=== PATIENT | female | born 1985 | race American Indian/Alaskan Native ===

== ENCOUNTER 2016-05-17 05:56 | Day surgery (SDC) | payer MEDICAID ==
[~2016-05-17 05:56] MED LIST: NACL 0.9% 1000 ML 1,000 ML IV SCH; PEPCID PO NR; VERSED IV NR
[2016-05-17] MEDS ORDERED: ANCEF/STERILE WATER 2 GM/20 ML IV NR (06:01)
[2016-05-17] MEDS ORDERED: NACL BACTERIOSTATIC INFILTRATI ONE (06:24)
[2016-05-17] MEDS ORDERED: XYLOCAINE MPF 2% ONE (06:34)
[2016-05-17] MEDS ORDERED: DIPRIVAN 10 MG/ML IV ONE (06:35)
[2016-05-17] MEDS ORDERED: DILAUDID ONE (06:36)
--- NOTE | 2016-05-17 06:51 | Anesthesia Day of Surgery ---
Anesthesia Day of Surgery - Day of Surgery Patient Examined: Yes Patient H&P Reviewed: Yes Patient is NPO: Yes
[2016-05-17 06:52] LABS: Hemoglobin 12.2 gm/dl (10.1-14.3)
--- NOTE | 2016-05-17 06:53 | Anesthesia Consultation ---
Anesthesia Consult and Med Hx - Airway Anesthetic Teeth Evaluation: Good ROM Head & Neck: Adequate Mental/Hyoid Distance: Adequate Mallampati Class: Class II Intubation Access Assessment: Probably Good - Pulmonary Exam CTA: Yes (little dry cough at present) - Cardiac Exam Cardiac Exam: RRR - Pre-Operative Health Status ASA Pre-Surgery Classification: ASA2 Proposed Anesthetic Plan: General - Pulmonary Hx Smoking: No Hx Asthma: Yes ( CHILD ONLY) Hx Sleep Apnea: No (FREEMAN PRE SCREEN NEGATIVE) - Cardiovascular System Hx Hypertension: No - Hematic Hx Anemia: Yes (WITH PREG. ONLY) - Other Systems Hx Cancer: No - Additional Comments Anesthesia Medical History Comments: No prior anesthesia problems. NPO after MN. Childhood asthma. Dry cough at present time
[2016-05-17] MEDS ORDERED: VERSED IV NR (07:00)
[2016-05-17] MEDS ORDERED: PEPCID PO NR (07:00)
[2016-05-17] MEDS ORDERED: DECADRON ONE (08:04)
[2016-05-17] MEDS ORDERED: ZOFRAN ONE (08:04)
[2016-05-17] MEDS ORDERED: NACL 0.9% IR ONE (08:55)
[2016-05-17] MEDS ORDERED: ZOFRAN IV PRN (09:09)
[2016-05-17] MEDS: DILAUDID IV PRN ×3 (09:15→09:30)
--- NOTE | 2016-05-17 09:49 | Post Anesthesia Evaluation ---
- Post Anesthesia Evaluation Patient Participated: Yes Airway Patent: Yes Stable Respiratory Function: Yes Nausea/Vomiting: No Temp > 96.8F: Yes Pain Manageable: Yes Adequeate Hydration: Yes Anesthesia Complications: No
[2016-05-17 10:04] VITALS: BP 112/76
--- NOTE | 2016-05-17 11:00 | Operative Report ---
SERVICE: Plastic surgery. PREOPERATIVE DIAGNOSIS: Hidradenitis suppurativa of left breast. POSTOPERATIVE DIAGNOSIS: Hidradenitis suppurativa of left breast. PROCEDURE: 1. Excision of hidradenitis suppurativa of left breast. 2. Adjacent tissue transfer, closure of left breast, 75 square cm. SURGEON: Marco Lucas MD DESCRIPTION OF PROCEDURE: The patient was brought to the operating room and placed on the table in supine position. Following administration of general anesthesia, the left breast was prepped with Betadine solution, draped in usual sterile manner. A #10 blade scalpel was used to circumferentially excise the affected area of skin along the medial half of the left breast, sent to pathology as specimen. Hemostasis controlled using the electrocautery. Skin was rotated and advanced across the defect with a back cut along the prior vertical scar, beneath the nipple areolar complex. Closure was performed in layers using interrupted and running subcuticular 2-0 Monocryl sutures. Mastisol, Steri-Strips, and sterile dressings applied. The patient tolerated the procedure well and returned to recovery room in stable condition. JOB# [id number] FTW/JUDITH
== END 2016-05-17 10:30 | disposition home or self-care (01) ==
LOC: OR 05:56
PROVIDERS: ATTEND Plastic Surgery
DX: L73.2 Hidradenitis suppurativa (principal); J45.909 Unspecified asthma, uncomplicated; D64.9 Anemia, unspecified; Z82.5 Family history of asthma and other chronic lower respiratory diseases; Z83.3 Family history of diabetes mellitus; Z82.49 Family history of ischemic heart disease and other diseases of the circulatory system; Z80.9 Family history of malignant neoplasm, unspecified; Z98.890 Other specified postprocedural states
CPT/HCPCS: 14301; 14302; 36415; 81025; 85014; 85018; 88305; J0690; J1100; J1170; J2405; J2704; J7030; J2250

== ENCOUNTER 2017-07-11 09:37 | Emergency (ER) | payer MEDICAID ==
[2017-07-11 09:50] VITALS: BP 112/76
--- NOTE | 2017-07-11 10:57 | XRay Report ---
RIGHT SHOULDER, 3 VIEWS: HISTORY: Right shoulder injury. Normal bone mineralization. Normal articulation of the a.c. joint and glenohumeral joint. No fracture, ligamentous injury or bone lesion. There is a focal soft tissue calcification overlying the expected course of the infraspinatus tendon consistent with chronic calcific tendinitis. IMPRESSION: No evidence for acute injury. Calcific tendinitis of the infraspinatus tendon.
[2017-07-11] MEDS ORDERED: TORADOL IM ONE (12:01)
[2017-07-11] MEDS ORDERED: NORCO 5/325 PO ONE (12:02)
[2017-07-11] MEDS ORDERED: ZOFRAN ODT PO ONE (12:02)
--- NOTE | 2017-07-11 12:09 | Emergency Department Report ---
Upper Extremity - HPI Chief Complaint: Shoulder Injury Stated Complaint: RIGHT SHOULDER INJURY Time Seen by Provider: 07/11/17 11:24 Upper Extremity: Right Shoulder Occurred When: 1 Day Severity: moderate Symptoms: Yes Pain with Movement, Yes Limited Range of Movement, No Deformity, No Numbness, No Weakness, No Swelling, No Bruising/Ecchymosis, No Laceration or Abrasion Other History: 31-year-old female past medical history history of right shoulder dislocation presents with complaint of one day of pain in right shoulder. Patient denies any direct falls or trauma. States she has a baby which weighs about 20 pounds which she constantly holds. Patient is complaining of persistent right-sided shoulder pain the upper deltoid region right shoulder. 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 Patient states that nearly 8 years ago she had one shoulder dislocation. Patient denies any paresthesias of right upper extremity. Patient is awake alert and oriented 3. Is able to somewhat rotate her shoulder but it is painful. Patient denies any falls or trauma. Denies fevers or chills. ED Review of Systems ROS: Stated complaint: RIGHT SHOULDER INJURY Other details as noted in HPI Constitutional: denies: chills, fever Eyes: denies: eye pain, eye discharge, vision change ENT: denies: ear pain, throat pain Respiratory: denies: cough, shortness of breath, wheezing Cardiovascular: denies: chest pain, palpitations Endocrine: no symptoms reported Gastrointestinal: as per HPI. denies: abdominal pain, nausea, diarrhea Genitourinary: denies: urgency, dysuria, discharge Musculoskeletal: denies: back pain, joint swelling, arthralgia Skin: denies: rash, lesions Neurological: denies: headache, weakness, paresthesias Psychiatric: denies: anxiety, depression Hematological/Lymphatic: denies: easy bleeding, easy bruising ED Past Medical Hx - Past Medical History Previous Medical History?: Yes Hx Hypertension: No Hx Asthma: Yes ( CHILD ONLY) Additional medical history: right shoulder dislocation - Surgical History Past Surgical History?: Yes Hx Breast Surgery: Yes (BREAST REDUCTION, I&D BREAST BOILS 05/2016) Additional Surgical History: BREAST REDUCTION, CS - Social History Smoking Status: Never Smoker Substance Use Type: Alcohol, Prescribed - Medications Home Medications: Home Medications Medication Instructions Recorded Confirmed Last Taken Type Acetaminophen/Codeine [Tylenol 1 tab PO Q6H PRN #12 tab 07/11/17 Unknown Rx /Codeine # 3 tab] Ibuprofen [Motrin] 600 mg PO Q8H PRN #25 tablet 07/11/17 Unknown Rx Upper Extremity Exam - Exam General: Vital signs noted. No distress. Alert and acting appropriately. Head and Torso: No HEENT Abnormality, No Neck Tenderness, No Chest/Lungs Abnormality, No Abdominal Tenderness, No Back Tenderness Shoulder Exam: Yes Shoulder Tenderness (right uppe deltoid pain), Yes Clavicle Tenderness, Yes Normal Range of Motion in Shoulder (shoulder abdcution, adduction, internal and external rotation intact but painful), No Shoulder Deformity, No AC Joint Tenderness Arm Exam: No Arm/Humerus Tenderness, No Arm Deformity Elbow: Yes Normal Range of Motion in Elbow, No Elbow Tenderness, No Elbow Deformity Forearm: No Forearm Tenderness, No Forearm Deformity, No Pain with Pronation, No Pain with Supination Wrist: Yes Normal ROM in Wrist, No Wrist Tenderness, No Wrist Deformity, No Snuffbox Tenderness, No Pain with Axial Thumb Compression Hand: Yes Normal ROM in Digit(s), No Hand Tenderness, No Hand Deformity, No Digit Tenderness, No Digit(s) Deformity, No Tendon Dysfunction CMS Exam: Yes Normal Distal Pulses (distal radial and brachial pulses intact), Yes Normal Distal Sensation (distal sensation intact), No Broken Skin ED Course Vital Signs 07/11/17 09:47 Temperature 97.6 F Pulse Rate 74 Respiratory 20 Rate Blood Pressure 112/76 O2 Sat by Pulse 99 Oximetry ED Medical Decision Making - Medical Decision Making A/P: Right shoulder pain, calcific tendinitis 1-x-ray consistent with calcific tendinitis of right shoulder 2-no fracture or dislocation 3-distal range of motion intact 4-follow-up with orthopedic Critical care attestation.: If time is entered above; I have spent that time in minutes in the direct care of this critically ill patient, excluding procedure time. ED Disposition Clinical Impression: Calcific tendinitis of right shoulder Disposition: TO HOME OR SELFCARE Is pt being admited?: No Does the pt Need Aspirin: No Condition: Stable Instructions: Calcific Tendinitis (ED), Adhesive Capsulitis (ED), Arthralgia ( ED), RICE Therapy (ED) Prescriptions: Acetaminophen/Codeine [Tylenol /Codeine # 3 tab] 1 tab PO Q6H PRN #12 tab PRN Reason: Pain Ibuprofen [Motrin] 600 mg PO Q8H PRN #25 tablet PRN Reason: Pain Referrals: PRIMARY CARE, [Primary Care Provider] - 3-5 Days [facility] [Outside] - 3-5 Days [facility] [Provider Group] - 3-5 Days Forms: Work/School Release Form(ED) Time of Disposition: 12:09
== END 2017-07-11 12:32 | disposition home or self-care (01) ==
LOC: ED 09:37
DX: M75.31 Calcific tendinitis of right shoulder (principal); J45.909 Unspecified asthma, uncomplicated
CPT/HCPCS: 73030; 96372; 99283; J1885; Q0162

== ENCOUNTER 2020-06-21 00:55 | Emergency (ER) | payer MEDICAID ==
[2020-06-21] MEDS ORDERED: KETOROLAC 30 MG/1 ML INJ IV ONE (01:42)
[2020-06-21] MEDS ORDERED: SODIUM CHLORIDE 0.9% 1000 ML 1,000 ML IV ONE (01:42)
[2020-06-21 01:44] LABS: Basophils # (Auto) 0.1 K/mm3 (0.0-0.1); Eosinophils # (Auto) 0.2 K/mm3 (0.0-0.4); Eosinophils % (Auto) 3.8 % (0.0-4.3); Hematocrit 39.1 % (30.3-42.9); Hemoglobin 12.8 gm/dl (10.1-14.3); Lymphocytes # (Auto) 1.8 K/mm3 (1.2-5.4); Lymphocytes % (Auto) 31.1 % (13.4-35.0); Mean Corpuscular HGB Conc 33 % (30-34); Mean Corpuscular Volume 87 fl (79-97); Monocytes # (Auto) 0.4 K/mm3 (0.0-0.8); Monocytes % (Auto) 7.2 % (0.0-7.3); Platelet Count 209 K/mm3 (140-440); Red Blood Count 4.47 M/mm3 (3.65-5.03); Red Cell Distribution Width 14.6 % (13.2-15.2)
--- NOTE | 2020-06-21 01:54 | Emergency Department Report ---
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 Patient started PrEP the following day. Patient has been doing relatively well until 2 to 3 days ago when she started developing some nausea and mild diarrhea. Started having some crampy central abdominal pain yesterday. Patient also states she had a fever as well. She has been taking Tylenol [id number] as well as Motrin for the fever and pain. Patient denies having blood in her vomit or stool. Pain is estimated at 5 out of 10 in severity. - Related Data Previous Rx's Medication Instructions Recorded Last Taken Type Acetaminophen/Codeine [Tylenol 1 tab PO Q6H PRN #12 tab 07/11/17 Unknown Rx /Codeine # 3 tab] Ibuprofen [Motrin] 600 mg PO Q8H PRN #25 tablet 07/11/17 Unknown Rx Dicyclomine [Bentyl] 20 mg PO QID #10 tablet 06/21/20 Unknown Rx Diphenoxylate/Atropine [Lomotil] 1 tab PO BID PRN #6 tablet 06/21/20 Unknown Rx Famotidine [Pepcid] 40 mg PO QHS #10 tablet 06/21/20 Unknown Rx Ketorolac [Toradol] 10 mg PO Q6H PRN #12 tablet 06/21/20 Unknown Rx Ondansetron [Zofran Odt] 4 mg PO Q8HR #10 tab.rapdis 06/21/20 Unknown Rx Allergies Allergy/AdvReac Type Severity Reaction Status Date / Time No Known Allergies Allergy Verified 01/03/15 23:21 ED Review of Systems ROS: Stated complaint: ALLERGIC REACTION; ABDOMINAL PAIN Other details as noted in HPI Comment: All other systems reviewed and negative ED Past Medical Hx - Past Medical History Previous Medical History?: Yes Hx Hypertension: No Hx Asthma: Yes ( CHILD ONLY) Additional medical history: right shoulder dislocation - Surgical History Past Surgical History?: Yes Hx Breast Surgery: Yes (BREAST REDUCTION, I&D BREAST BOILS 05/2016) Additional Surgical History: BREAST REDUCTION, - Social History Smoking Status: Never Smoker Substance Use Type: None - Medications Home Medications: Home Medications Medication Instructions Recorded Confirmed Last Taken Type Acetaminophen/Codeine [Tylenol 1 tab PO Q6H PRN #12 tab 07/11/17 Unknown Rx /Codeine # 3 tab] Ibuprofen [Motrin] 600 mg PO Q8H PRN #25 tablet 07/11/17 Unknown Rx Dicyclomine [Bentyl] 20 mg PO QID #10 tablet 06/21/20 Unknown Rx Diphenoxylate/Atropine [Lomotil] 1 tab PO BID PRN #6 tablet 06/21/20 Unknown Rx Famotidine [Pepcid] 40 mg PO QHS #10 tablet 06/21/20 Unknown Rx Ketorolac [Toradol] 10 mg PO Q6H PRN #12 tablet 06/21/20 Unknown Rx Ondansetron [Zofran Odt] 4 mg PO Q8HR #10 tab.rapdis 06/21/20 Unknown Rx ED Physical Exam - General Limitations: No Limitations General appearance: alert, in no apparent distress - Head Head exam: Present: atraumatic, normocephalic - Eye Eye exam: Present: normal appearance, PERRL, EOMI - ENT ENT exam: Present: mucous membranes moist - Neck Neck exam: Present: normal inspection - Respiratory Respiratory exam: Present: normal lung sounds bilaterally. Absent: respiratory distress, wheezes, rales, rhonchi - Cardiovascular Cardiovascular Exam: Present: regular rate, normal rhythm, normal heart sounds. Absent: systolic murmur, diastolic murmur, rubs, gallop - GI/Abdominal GI/Abdominal exam: Present: soft, normal bowel sounds. Absent: distended, tenderness, guarding - Extremities Exam Extremities exam: Present: normal inspection - Back Exam Back exam: Present: normal inspection - Neurological Exam Neurological exam: Present: alert, oriented X3 - Psychiatric Psychiatric exam: Present: normal affect, normal mood - Skin Skin exam: Present: warm, dry, intact, normal color. Absent: rash ED Course Vital Signs 06/21/20 06/21/20 06/21/20 01:02 02:14 03:04 Temperature 98.1 F Pulse Rate 81 76 Respiratory 18 16 16 Rate Blood Pressure 103/71 Blood Pressure 110/76 [Left] O2 Sat by Pulse 99 98 Oximetry ED Medical Decision Making - Lab Data Result diagrams: 06/21/20 01:25 06/21/20 01:25 Lab Results 06/21/20 06/21/20 06/21/20 Range/Units 01:25 01:25 01:25 WBC 5.7 (4.5-11.0) K/mm3 RBC 4.47 (3.65-5.03) M/mm3 Hgb 12.8 (10.1-14.3) gm/dl Hct 39.1 (30.3-42.9) % MCV 87 (79-97) fl MCH 29 (28-32) pg MCHC 33 (30-34) % RDW 14.6 (13.2-15.2) % Plt Count 209 (140-440) K/mm3 Lymph % (Auto) 31.1 (13.4-35.0) % [place] % (Auto) 7.2 (0.0-7.3) % Eos % (Auto) 3.8 (0.0-4.3) % Baso % (Auto) 1.0 (0.0-1.8) % Lymph # (Auto) 1.8 (1.2-5.4) K/mm3 [place] # (Auto) 0.4 (0.0-0.8) K/mm3 Eos # (Auto) 0.2 (0.0-0.4) K/mm3 Baso # (Auto) 0.1 (0.0-0.1) K/mm3 Seg Neutrophils % 56.9 (40.0-70.0) % Seg Neutrophils # 3.2 (1.8-7.7) K/mm3 Sodium 134 L (137-145) mmol/L Potassium 4.1 (3.6-5.0) mmol/L Chloride 98.2 (98-107) mmol/L Carbon Dioxide 27 (22-30) mmol/L Anion Gap 13 mmol/L BUN 15 (7-17) mg/dL Creatinine 0.7 (0.6-1.2) mg/dL Estimated GFR > 60 ml/min BUN/Creatinine Ratio 21 % Glucose 90 (65-100) mg/dL Calcium 9.2 (8.4-10.2) mg/dL Total Bilirubin 0.30 (0.1-1.2) mg/dL AST 15 (5-40) units/L ALT 8 (7-56) units/L Alkaline Phosphatase 59 (35-129) units/L Total Protein 8.0 (6.3-8.2) g/dL Albumin 4.4 (3.9-5) g/dL Albumin/Globulin Ratio 1.2 % Lipase 39 (13-60) units/L HCG, Qual Negative (Negative) Urine Color (Yellow) Urine Turbidity (Clear) Urine pH (5.0-7.0) Ur Specific [place] (1.003-1.030) Urine Protein (Negative) mg/dL Urine Glucose (UA) (Negative) mg/dL Urine Ketones (Negative) mg/dL Urine Blood (Negative) Urine Nitrite (Negative) Urine Bilirubin (Negative) Urine Urobilinogen (<2.0) mg/dL Ur Leukocyte Esterase (Negative) Urine WBC (Auto) (0.0-6.0) /HPF Urine RBC (Auto) (0.0-6.0) /HPF U Epithel Cells (Auto) (0-13.0) /HPF Urine Bacteria (Auto) (Negative) /HPF Urine Mucus /HPF 06/21/20 Range/Units Unknown WBC (4.5-11.0) K/mm3 RBC (3.65-5.03) M/mm3 Hgb (10.1-14.3) gm/dl Hct (30.3-42.9) % MCV (79-97) fl MCH (28-32) pg MCHC (30-34) % RDW (13.2-15.2) % Plt Count (140-440) K/mm3 Lymph % (Auto) (13.4-35.0) % [place] % (Auto) (0.0-7.3) % Eos % (Auto) (0.0-4.3) % Baso % (Auto) (0.0-1.8) % Lymph # (Auto) (1.2-5.4) K/mm3 [place] # (Auto) (0.0-0.8) K/mm3 Eos # (Auto) (0.0-0.4) K/mm3 Baso # (Auto) (0.0-0.1) K/mm3 Seg Neutrophils % (40.0-70.0) % Seg Neutrophils # (1.8-7.7) K/mm3 Sodium (137-145) mmol/L Potassium (3.6-5.0) mmol/L Chloride (98-107) mmol/L Carbon Dioxide (22-30) mmol/L Anion Gap mmol/L BUN (7-17) mg/dL Creatinine (0.6-1.2) mg/dL Estimated GFR ml/min BUN/Creatinine Ratio % Glucose (65-100) mg/dL Calcium (8.4-10.2) mg/dL Total Bilirubin (0.1-1.2) mg/dL AST (5-40) units/L ALT (7-56) units/L Alkaline Phosphatase (35-129) units/L Total Protein (6.3-8.2) g/dL Albumin (3.9-5) g/dL Albumin/Globulin Ratio % Lipase (13-60) units/L HCG, Qual (Negative) Urine Color Yellow (Yellow) Urine Turbidity Slightly-cloudy (Clear) Urine pH 5.0 (5.0-7.0) Ur Specific [place] 1.024 (1.003-1.030) Urine Protein <15 mg/dl (Negative) mg/dL Urine Glucose (UA) Neg (Negative) mg/dL Urine Ketones Neg (Negative) mg/dL Urine Blood Neg (Negative) Urine Nitrite Neg (Negative) Urine Bilirubin Neg (Negative) Urine Urobilinogen 4.0 (<2.0) mg/dL Ur Leukocyte Esterase Neg (Negative) Urine WBC (Auto) 4.0 (0.0-6.0) /HPF Urine RBC (Auto) 11.0 (0.0-6.0) /HPF U Epithel Cells (Auto) 4.0 (0-13.0) /HPF Urine Bacteria (Auto) 1+ (Negative) /HPF Urine Mucus Few /HPF - Radiology Data CT ABDOMEN AND PELVIS WITH CONTRAST INDICATION / CLINICAL INFORMATION: NVD fever. TECHNIQUE: Axial CT images were obtained through the abdomen and pelvis after IV contrast. All CT scans at this location are performed using CT dose reduction for ALARA by means of automated expo sure control. COMPARISON: None available. FINDINGS: LOWER CHEST: No significant abnormality LIVER: Mild hepatomegaly versus José Antonio's configuration. No focal hepatic lesion. GALLBLADDER/BILIARY TREE: No significant abnormality PANCREAS: No significant abnormality SPLEEN: No significant abnormality ADRENALS: No significant abnormality KIDNEYS / URETER: No significant abnormality URINARY BLADDER: Bladder is partially decompressed, though grossly unremarkable. REPRODUCTIVE ORGANS: Uterus/adnexa are appropriate for age. STOMACH / SMALL BOWEL: Stomach and small bowel are normal in caliber. No evidence of bowel inflammation. COLON: The colon is unremarkable. The appendix is normal in caliber. LYMPH NODES: No significant adenopathy. VASCULATURE: No significant abnormality. OTHER: No free air, free fluid, or focal fluid collection is identified. SKELETAL SYSTEM: No acute osseous findings. IMPRESSION: No acute abnormality of the abdomen or pelvis. Signer Name: Henri Landeros MD Signed: 06/21/2020 3:01 AM Workstation Name: [id number] - Medical Decision Making Patient is feeling some improvement after meds given. She was hydrated. CT shows no bowel inflammation. [place]vada can cause fevers and the PrEP cocktail oftentimes does cause nausea vomiting diarrhea. Patient be given medications to combat the symptoms but should be discharged home. Critical care attestation.: If time is entered above; I have spent that time in minutes in the direct care of this critically ill patient, excluding procedure time. ED Disposition Clinical Impression: Gastroenteritis, Medication side effect Disposition: DC-01 TO HOME OR SELFCARE Is pt being admited?: No Does the pt Need Aspirin: No Condition: Stable Instructions: Nausea and Vomiting, Adult, Diarrhea, Adult Referrals: PRIMARY CARE, [Primary Care Provider] - 3-5 Days Time of Disposition: 03:46
[2020-06-21 02:00] LABS: Alanine Aminotransferase 8 units/L (7-56); Albumin 4.4 g/dL (3.9-5); Blood Urea Nitrogen 15 mg/dL (7-17); Calcium 9.2 mg/dL (8.4-10.2); Hemolysis Index 1
[2020-06-21 02:02] LABS: BUN/Creatinine Ratio 21
--- NOTE | 2020-06-21 03:06 | Cat Scan Report ---
CT ABDOMEN AND PELVIS WITH CONTRAST INDICATION / CLINICAL INFORMATION: NVD fever. TECHNIQUE: Axial CT images were obtained through the abdomen and pelvis after IV contrast. All CT sc ans at this location are performed using CT dose reduction for ALARA by means of automated exposure c ontrol. COMPARISON: None available. FINDINGS: LOWER CHEST: No significant abnormality LIVER: Mild hepatomegaly versus José Antonio's configuration. No focal hepatic lesion. GALLBLADDER/BILIARY TREE: No significant abnormality PANCREAS: No significant abnormality SPLEEN: No significant abnormality ADRENALS: No significant abnormality KIDNEYS / URETER: No significant abnormality URINARY BLADDER: Bladder is partially decompressed, though grossly unremarkable. REPRODUCTIVE ORGANS: Uterus/adnexa are appropriate for age. STOMACH / SMALL BOWEL: Stomach and small bowel are normal in caliber. No evidence of bowel inflammati on. COLON: The colon is unremarkable. The appendix is normal in caliber. LYMPH NODES: No significant adenopathy. VASCULATURE: No significant abnormality. OTHER: No free air, free fluid, or focal fluid collection is identified. SKELETAL SYSTEM: No acute osseous findings. IMPRESSION: No acute abnormality of the abdomen or pelvis. Signer Name: Henri Landeros MD Signed: 06/21/2020 3:01 AM Workstation Name: [id number]
[2020-06-21 03:10] LABS: Bacteria,Urine 1+ /HPF (Negative); Bilirubin,Urine NEG (Negative); Blood,Urine NEG (Negative); Color,Urine Yellow (Yellow); Mucus,Urine FEW /HPF; Protein,Urine <15 mg/dL mg/dL (Negative)
[2020-06-21 04:40] VITALS: BP 104/66
== END 2020-06-21 04:40 | disposition home or self-care (01) ==
LOC: ED 00:55
DX: K52.9 Noninfective gastroenteritis and colitis, unspecified (principal); T50.905A Adverse effect of unspecified drugs, medicaments and biological substances, initial encounter; J45.909 Unspecified asthma, uncomplicated; Z98.890 Other specified postprocedural states; Z79.1 Long term (current) use of non-steroidal anti-inflammatories (NSAID); Z79.899 Other long term (current) drug therapy; Y92.89 Other specified places as the place of occurrence of the external cause
CPT/HCPCS: 36415; 74177; 80053; 81001; 83690; 84703; 85025; 96361; 96374; 99284; J1885; J7030; Q9967

== ENCOUNTER 2020-12-21 04:22 | Emergency (ER) | payer BC, MEDICAID ==
[2020-12-21 05:29] VITALS: BP 109/73
[2020-12-21 06:23] LABS: Bacteria,Urine 1+ /HPF (Negative); Bilirubin,Urine NEG (Negative); Blood,Urine NEG (Negative); Color,Urine Yellow (Yellow); Mucus,Urine 1+ /HPF; Protein,Urine <15 mg/dL mg/dL (Negative); Urobilinogen,Urine < 2.0 mg/dL (<2.0)
[2020-12-21 07:45] LABS: Basophils % (Auto) 0.4 % (0.0-1.8); Eosinophils # (Auto) 0.4 K/mm3 (0.0-0.4); Eosinophils % (Auto) 5.4 % (0.0-4.3); Hematocrit 35.2 % (30.3-42.9); Hemoglobin 11.7 gm/dl (10.1-14.3); Lymphocytes # (Auto) 2.3 K/mm3 (1.2-5.4); Mean Corpuscular HGB Conc 33 % (30-34); Mean Corpuscular Volume 87 fl (79-97); Monocytes # (Auto) 0.7 K/mm3 (0.0-0.8); Monocytes % (Auto) 9.3 % (0.0-7.3); Platelet Count 211 K/mm3 (140-440); Red Blood Count 4.03 M/mm3 (3.65-5.03); Red Cell Distribution Width 15.7 % (13.2-15.2)
[2020-12-21 08:38] LABS: Alanine Aminotransferase 9 units/L (7-56); Blood Urea Nitrogen 12 mg/dL (7-17); Calcium 9.4 mg/dL (8.4-10.2); Hemolysis Index 2
[2020-12-21 08:54] LABS: BUN/Creatinine Ratio 24
--- NOTE | 2020-12-21 09:13 | Ultrasound Report ---
EARLY OBSTETRICAL ULTRASOUND INDICATION: pelvic pain COMPARISON: None pertinent available TECHNIQUE: Transabdominal FINDINGS: Early intrauterine is seen with pole and yolk sac noted. Cardiac activity w as documented with heart rate of 166 bpm period estimated gestational age by crown-rump length is 8 weeks 1 day which reasonably corresponds to clinical dating. There may be a minimal implant blee d. IMPRESSION: Viable appearing early intrauterine Signer Name: Federico Siddiqi MD Signed: 12/21/2020 9:09 AM Workstation Name: [id number]
--- NOTE | 2020-12-21 09:24 | Emergency Department Report ---
ED HPI - General Chief complaint: Abdominal Pain Stated complaint: 8WKS PREG/IVF/STOMACH PAIN Time Seen by Provider: 12/21/20 07:57 Source: patient Mode of arrival: Ambulatory Limitations: No Limitations - History of Present Illness Initial comments: This is a 35-year-old female A1 nontoxic, well nourished in appearance, no acute signs of distress presents to the ED with c/o of pelvic cramping x several days. Patient denies any vaginal bleeding. Stated cramping is inermittent and her OB stated to come to the ED for ultrasound due to high risk . Patient denies any upper abdominal pain. Patient denies any vaginal discharge o r foul odor. Patient denies any nausea, vomiting, chest pain, shortness of breathe, fever, chills, headache, stiff neck, numbness, tingling. Patient denies any urinary symptoms. Patient denies any allergies. -: days(s) Location: pelvis Radiation: none Severity: mild Severity scale (0 -10): 3 Quality: cramping, sharp Consistency: intermittent Improves with: none Worsens with: none Associated symptoms: denies: nausea/vomiting, vaginal bleeding, vaginal discharge, abdominal pain, dysuria, headache, vision changes, malaise, dysparuenia, rash, seizure, shortness of breath, syncope, weakness Vaginal bleeding: none :: Yes Number of weeks : 8 Pre-sarah care: followed by OB - Related Data Previous Rx's Medication Instructions Recorded Last Taken Type Acetaminophen/Codeine [Tylenol 1 tab PO Q6H PRN #12 tab 07/11/17 Unknown Rx /Codeine # 3 tab] Ibuprofen [Motrin] 600 mg PO Q8H PRN #25 tablet 07/11/17 Unknown Rx Dicyclomine [Bentyl] 20 mg PO QID #10 tablet 06/21/20 Unknown Rx Diphenoxylate/Atropine [Lomotil] 1 tab PO BID PRN #6 tablet 06/21/20 Unknown Rx Famotidine [Pepcid] 40 mg PO QHS #10 tablet 06/21/20 Unknown Rx Ketorolac [Toradol] 10 mg PO Q6H PRN #12 tablet 06/21/20 Unknown Rx Ondansetron [Zofran Odt] 4 mg PO Q8HR #10 tab.rapdis 06/21/20 Unknown Rx Allergies Allergy/AdvReac Type Severity Reaction Status Date / Time No Known Allergies Allergy Verified 01/03/15 23:21 ED Review of Systems ROS: Stated complaint: 8WKS PREG/IVF/STOMACH PAIN Other details as noted in HPI Comment: All other systems reviewed and negative Constitutional: denies: chills, fever Eyes: denies: eye pain, eye discharge, vision change ENT: denies: ear pain, throat pain Respiratory: denies: cough, shortness of breath, wheezing Cardiovascular: denies: chest pain, palpitations Endocrine: no symptoms reported Gastrointestinal: denies: abdominal pain, nausea, diarrhea Genitourinary: denies: urgency, dysuria, discharge Musculoskeletal: denies: back pain, joint swelling, arthralgia Skin: denies: rash, lesions Neurological: denies: headache, weakness, paresthesias Psychiatric: denies: anxiety, depression Hematological/Lymphatic: denies: easy bleeding, easy bruising ED Past Medical Hx - Past Medical History Previous Medical History?: Yes Hx Hypertension: No Hx Asthma: Yes ( CHILD ONLY) Additional medical history: right shoulder dislocation - Surgical History Past Surgical History?: Yes Hx Breast Surgery: Yes (BREAST REDUCTION, I&D BREAST BOILS 05/2016) Additional Surgical History: BREAST REDUCTION, - Social History Smoking Status: Never Smoker Substance Use Type: None - Medications Home Medications: Home Medications Medication Instructions Recorded Confirmed Last Taken Type Acetaminophen/Codeine [Tylenol 1 tab PO Q6H PRN #12 tab 07/11/17 Unknown Rx /Codeine # 3 tab] Ibuprofen [Motrin] 600 mg PO Q8H PRN #25 tablet 07/11/17 Unknown Rx Dicyclomine [Bentyl] 20 mg PO QID #10 tablet 06/21/20 Unknown Rx Diphenoxylate/Atropine [Lomotil] 1 tab PO BID PRN #6 tablet 06/21/20 Unknown Rx Famotidine [Pepcid] 40 mg PO QHS #10 tablet 06/21/20 Unknown Rx Ketorolac [Toradol] 10 mg PO Q6H PRN #12 tablet 06/21/20 Unknown Rx Ondansetron [Zofran Odt] 4 mg PO Q8HR #10 tab.rapdis 06/21/20 Unknown Rx ED Physical Exam - General Limitations: No Limitations General appearance: alert, in no apparent distress - Head Head exam: Present: atraumatic, normocephalic - Eye Eye exam: Present: normal appearance - Neck Neck exam: Present: normal inspection, full ROM. Absent: lymphadenopathy - Respiratory Respiratory exam: Present: normal lung sounds bilaterally. Absent: respiratory distress, wheezes, rales, rhonchi, stridor, chest wall tenderness, accessory muscle use, decreased breath sounds, prolonged expiratory - Cardiovascular Cardiovascular Exam: Present: regular rate, normal rhythm, normal heart sounds. Absent: bradycardia, tachycardia, irregular rhythm, systolic murmur, diastolic murmur, rubs, gallop - GI/Abdominal GI/Abdominal exam: Present: soft, normal bowel sounds. Absent: distended, tenderness, guarding, rebound, rigid, diminished bowel sounds - Extremities Exam Extremities exam: Present: full ROM - Back Exam Back exam: Present: normal inspection, full ROM. Absent: tenderness, CVA tenderness (R), CVA tenderness (L), muscle spasm, paraspinal tenderness, vertebral tenderness, rash noted - Neurological Exam Neurological exam: Present: alert, oriented X3, normal gait - Psychiatric Psychiatric exam: Present: normal affect, normal mood - Skin Skin exam: Present: warm, dry, intact, normal color. Absent: rash ED Course Vital Signs 12/21/20 05:27 Temperature 98.2 F Pulse Rate 75 Respiratory 18 Rate Blood Pressure 109/73 [Left] O2 Sat by Pulse 100 Oximetry - Reevaluation(s) Reevaluation #1: 12/21/20 09:24 Patient is speaking in full sentences with no signs of distress noted. ED Medical Decision Making - Lab Data Result diagrams: 12/21/20 05:40 12/21/20 05:40 Lab Results 12/21/20 12/21/20 12/21/20 Range/Units 05:40 05:40 05:40 WBC 7.3 (4.5-11.0) K/mm3 RBC 4.03 (3.65-5.03) M/mm3 Hgb 11.7 (10.1-14.3) gm/dl Hct 35.2 (30.3-42.9) % MCV 87 (79-97) fl MCH 29 (28-32) pg MCHC 33 (30-34) % RDW 15.7 H (13.2-15.2) % Plt Count 211 (140-440) K/mm3 Lymph % (Auto) 31.0 (13.4-35.0) % [place] % (Auto) 9.3 H (0.0-7.3) % Eos % (Auto) 5.4 H (0.0-4.3) % Baso % (Auto) 0.4 (0.0-1.8) % Lymph # (Auto) 2.3 (1.2-5.4) K/mm3 [place] # (Auto) 0.7 (0.0-0.8) K/mm3 Eos # (Auto) 0.4 (0.0-0.4) K/mm3 Baso # (Auto) 0.0 (0.0-0.1) K/mm3 Seg Neutrophils % 53.9 (40.0-70.0) % Seg Neutrophils # 4.0 (1.8-7.7) K/mm3 Sodium 135 L (137-145) mmol/L Potassium 3.9 (3.6-5.0) mmol/L Chloride 98.8 (98-107) mmol/L Carbon Dioxide 26 (22-30) mmol/L Anion Gap 14 mmol/L BUN 12 (7-17) mg/dL Creatinine 0.5 L (0.6-1.2) mg/dL Estimated GFR > 60 ml/min BUN/Creatinine Ratio 24 % Glucose 79 (65-100) mg/dL Calcium 9.4 (8.4-10.2) mg/dL Total Bilirubin 0.20 (0.1-1.2) mg/dL AST 14 (5-40) units/L ALT 9 (7-56) units/L Alkaline Phosphatase 49 (35-129) units/L Total Protein 6.9 (6.3-8.2) g/dL Albumin 4.0 (3.9-5) g/dL Albumin/Globulin Ratio 1.4 % HCG, Quant 141352 H (0-4) mIU/mL Urine Color (Yellow) Urine Turbidity (Clear) Urine pH (5.0-7.0) Ur Specific [place] (1.003-1.030) Urine Protein (Negative) mg/dL Urine Glucose (UA) (Negative) mg/dL Urine Ketones (Negative) mg/dL Urine Blood (Negative) Urine Nitrite (Negative) Urine Bilirubin (Negative) Urine Urobilinogen (<2.0) mg/dL Ur Leukocyte Esterase (Negative) Urine WBC (Auto) (0.0-6.0) /HPF Urine RBC (Auto) (0.0-6.0) /HPF U Epithel Cells (Auto) (0-13.0) /HPF Urine Bacteria (Auto) (Negative) /HPF Urine Mucus /HPF 12/21/20 Range/Units Unknown WBC (4.5-11.0) K/mm3 RBC (3.65-5.03) M/mm3 Hgb (10.1-14.3) gm/dl Hct (30.3-42.9) % MCV (79-97) fl MCH (28-32) pg MCHC (30-34) % RDW (13.2-15.2) % Plt Count (140-440) K/mm3 Lymph % (Auto) (13.4-35.0) % [place] % (Auto) (0.0-7.3) % Eos % (Auto) (0.0-4.3) % Baso % (Auto) (0.0-1.8) % Lymph # (Auto) (1.2-5.4) K/mm3 [place] # (Auto) (0.0-0.8) K/mm3 Eos # (Auto) (0.0-0.4) K/mm3 Baso # (Auto) (0.0-0.1) K/mm3 Seg Neutrophils % (40.0-70.0) % Seg Neutrophils # (1.8-7.7) K/mm3 Sodium (137-145) mmol/L Potassium (3.6-5.0) mmol/L Chloride (98-107) mmol/L Carbon Dioxide (22-30) mmol/L Anion Gap mmol/L BUN (7-17) mg/dL Creatinine (0.6-1.2) mg/dL Estimated GFR ml/min BUN/Creatinine Ratio % Glucose (65-100) mg/dL Calcium (8.4-10.2) mg/dL Total Bilirubin (0.1-1.2) mg/dL AST (5-40) units/L ALT (7-56) units/L Alkaline Phosphatase (35-129) units/L Total Protein (6.3-8.2) g/dL Albumin (3.9-5) g/dL Albumin/Globulin Ratio % HCG, Quant (0-4) mIU/mL Urine Color Yellow (Yellow) Urine Turbidity Slightly-cloudy (Clear) Urine pH 6.0 (5.0-7.0) Ur Specific [place] 1.023 (1.003-1.030) Urine Protein <15 mg/dl (Negative) mg/dL Urine Glucose (UA) Neg (Negative) mg/dL Urine Ketones Neg (Negative) mg/dL Urine Blood Neg (Negative) Urine Nitrite Neg (Negative) Urine Bilirubin Neg (Negative) Urine Urobilinogen < 2.0 (<2.0) mg/dL Ur Leukocyte Esterase Neg (Negative) Urine WBC (Auto) 2.0 (0.0-6.0) /HPF Urine RBC (Auto) 4.0 (0.0-6.0) /HPF U Epithel Cells (Auto) 3.0 (0-13.0) /HPF Urine Bacteria (Auto) 1+ (Negative) /HPF Urine Mucus 1+ /HPF - Radiology Data [facility] [address] [place] [address] Ultrasound Report Signed Patient: PRINCESS JAZLYN GARRETT MR #: [id number] : 1985 Acct:[id number] Age/Sex: 35 / F ADM Date: 12/21/20 Loc: ED Attending Dr: Ordering Physician: SHARON MATT NP Date of Service: 12/21/20 Procedure(s): US OB <= 14 weeks fetus Accession Number(s): [id number] cc: SHARON MATT NP EARLY OBSTETRICAL ULTRASOUND INDICATION: pelvic pain COMPARISON: None pertinent available TECHNIQUE: Transabdominal FINDINGS: Early intrauterine is seen with pole and yolk sac noted. Cardiac activity was documented with heart rate of 166 bpm period estimated gestational age by crown-rump length is 8 weeks 1 day which reasonably corresponds to clinical dating. There may be a minimal implant bleed. IMPRESSION: Viable appearing early intrauterine Signer Name: Federico Siddiqi MD Signed: 12/21/2020 9:09 AM Workstation Name: [id number] Transcribed By: GJ Dictated By: Federico Siddiqi MD Electronically Authenticated By: Federico Siddiqi MD Signed Date/Time: 12/21/20908 DD/ 5 TD/TT: - Medical Decision Making This is a 35-year-old female presents with pelvic pain during . Patient is stable and was examined by me. Normal abdominal exam. US OB obtained and dictated by the radiologist. Ua obtained. Quantative serum test obtained. Patient notified of the US report with no questions noted by the patient. Patient was instructed f/u with [facility] in 3-5 days. Labs within normal limits. At time of discharge, the patient does not seem toxic or ill in appearance. No acute signs of distress noted. Patient agrees to discharge treatment plan of care. No further questions noted by the patient. Critical care attestation.: If time is entered above; I have spent that time in minutes in the direct care of this critically ill patient, excluding procedure time. ED Disposition Clinical Impression: Pelvic pain during Disposition: 01 HOME / SELF CARE / HOMELESS Is pt being admited?: No Does the pt Need Aspirin: No Condition: Stable Instructions: Abdominal Pain (ED), Round Ligament Pain Additional Instructions: Follow-up with a OBGYN doctor in 3-5 days or if symptoms worsen and continue return to emergency room as soon as possible. Referrals: [facility] [Primary Care Provider] - 3-5 Days [facility] [Provider Group] - 3-5 Days [facility] [Provider Group] - 3-5 Days Forms: Work/School Release Form(ED) Time of Disposition: 09:28
== END 2020-12-21 09:25 | disposition home or self-care (01) ==
LOC: ED 04:22
DX: O26.891 Other specified pregnancy related conditions, first trimester (principal); Z3A.08 8 weeks gestation of pregnancy; R10.2 Pelvic and perineal pain; J45.909 Unspecified asthma, uncomplicated
CPT/HCPCS: 36415; 76801; 80053; 81001; 84702; 85025; 99284